=== PATIENT | male | born 1945 | race Caucasian/White ===

== ENCOUNTER 2018-10-12 09:05 | Inpatient (IN) | payer MEDICARE, OTHER ==
[~2018-10-12] VITALS: Ht 172.7 cm; Wt 48.6 kg
--- NOTE | 2018-10-12 09:30 | NUR ---
NGOZI PA AT BS.
--- NOTE | 2018-10-12 09:54 | NUR ---
MD WAS IN TO SEE PT. RV'WD POC WITH PT, HE VERBALIZES UNDERSTANDING. ALL MONITORS ON.
[2018-10-12] MEDS ORDERED: DILTIAZEM 5 MG/ML, 5ML IV ONE (10:00)
[2018-10-12] MEDS ORDERED: SODIUM CHLORIDE FLUSH 10ML SYR IVF ONE (10:00)
--- NOTE | 2018-10-12 10:26 | NUR ---
PT BACK FROM CT. DENIES NEEDS AT THIS TIME.
[2018-10-12] MEDS ORDERED: DILTIAZEM 125 MG in DEXTROSE 5% 100 ML IV SCH (10:31)
[2018-10-12] MEDS ORDERED: DILTIAZEM 5 MG/ML, 10ML ONE (10:36)
[2018-10-12 10:53] LABS: BASOPHILS # (AUTO) 0.07 x10^3/uL (0-0.1); BASOPHILS % (AUTO) 1 % (0-1); EOSINOPHILS # (AUTO) 0.04 x10^3/uL (0-0.4); EOSINOPHILS % (AUTO) 1 % (1-7); LYMPHOCYTES # (AUTO) 0.81 x10^3/uL (1-3.4); LYMPHOCYTES % (AUTO) 11 % (22-44); MD NO; MEAN CORPUSCULAR HEMOGLOBIN 28.4 pg (27.5-34.5); MEAN CORPUSCULAR HGB CONC 33.4 g/dL (33.2-36.2); MEAN CORPUSCULAR VOLUME 85.1 fL (81-97); MEAN PLATELET VOLUME 7.5 fL (7.4-10.4); MONOCYTES # (AUTO) 0.71 x10^3/uL (0.2-0.8); MONOCYTES % (AUTO) 9 % (2-9); NEUTROPHILS # (AUTO) 5.93 x10^3/uL (1.8-6.8); NEUTROPHILS % (AUTO) 78 % (42-75); PLATELET COUNT 512 x10^3/uL (130-400); RED BLOOD COUNT 4.45 x10^6/uL (4.38-5.82); RED CELL DISTRIBUTION WIDTH 14.7 % (9.4-14.8)
[2018-10-12 11:01] LABS: INTERNATIONAL NORMALIZED RATIO 1.15 (0.93-1.1)
[2018-10-12 11:14] LABS: ALBUMIN 2.8 g/dL (3.4-5.0); ANION GAP 9 mmol/L (5-15); CALCIUM 8.6 mg/dL (8.5-10.1); CHLORIDE 99 mmol/L (98-107); CREATININE 0.68 mg/dL (0.7-1.3)
--- NOTE | 2018-10-12 11:19 | NUR ---
DILTIAZEM GTT INFUSING. HR DECREASED TO 105-115 NOW. PT A&OX4, SITTING UP IN [facility].
[2018-10-12] MEDS ORDERED: CEFTRIAXONE PMX 1GM/50ML 50 ML IVPB ONE (11:30)
[2018-10-12] MEDS ORDERED: ASPIRIN 81 MG TABLET CHEW PO ONE (11:30)
[2018-10-12] MEDS ORDERED: AZITHROMYCIN 500 MG in SODIUM CHLORIDE 0.9% 250 ML IVPB ONE (11:30)
--- NOTE | 2018-10-12 11:50 | NUR ---
PT TO CT VIA [facility].
[2018-10-12] MEDS ORDERED: OMNIPAQUE 350 MG/ML, 100ML BOTTLE ONE (12:08)
--- NOTE | 2018-10-12 12:20 | NUR ---
PT VISITING WITH FRIEND "DOC" AT THIS TIME. Addendum: 10/12/18 at 1225 by LUISA PT'S FRIENDS/NEIGHBORS SHOULD BE CONTACTED IF PT NEEDS TO BE PICKED UP FROM HOSPITAL. AMRIAN "DOC" DEJON, , OR VENESSA .
[2018-10-12] MEDS ORDERED: ASPIRIN 81 MG TABLET CHEW ONE (12:43)
[2018-10-12] MEDS ORDERED: CEFTRIAXONE PMX 1GM/50ML 50 ML ONE (12:43)
[2018-10-12] MEDS ORDERED: LABETALOL 5MG/ML, 20ML IVPush PRN (15:00)
[2018-10-12] MEDS ORDERED: ENALAPRILAT 1.25 MG/ML, 2ML IVPush PRN (15:00)
[2018-10-12] MEDS ORDERED: BISACODYL 10 MG SUPP PR PRN (15:00)
[2018-10-12] MEDS ORDERED: ONDANSETRON 2MG/ML, 2ML IVPush PRN (15:00)
[2018-10-12] MEDS ORDERED: POLYETHYLENE GLYCOL 17 GM PACKET PO PRN (15:00)
[2018-10-12] MEDS ORDERED: NITROGLYCERIN 0.4 MG BOTTLE (25 TABS) SL PRN (15:00)
[2018-10-12] MEDS ORDERED: ACETAMINOPHEN 325 MG TABLET PO PRN (15:00)
[2018-10-12] MEDS ORDERED: ONDANSETRON ODT 4 MG PO PRN (15:00)
[2018-10-12] MEDS ORDERED: GUAIFENESIN/DM 200-20MG, 10ML UDC PO PRN (15:00)
[2018-10-12] MEDS ORDERED: SODIUM CHLORIDE FLUSH 10ML SYR IVF PRN (15:00)
--- NOTE | 2018-10-12 15:07 | NUR ---
ADMITTING MD WAS IN TO SEE PT. LAB AT FOR REPEAT TROP. REPORTED TO CHRISTIAN CAPUTO.
--- NOTE | 2018-10-12 15:15 | NUR ---
REPPORTED TO RUTH CAPUTO ON TELE.
--- NOTE | 2018-10-12 15:23 | NUR ---
RECEIVED REPORT FROM ANGEL CAPUTO. PT TAKEN TO MRI.
--- NOTE | 2018-10-12 15:46 | NUR ---
RECEIVED CRITICAL TROPONIN 5.050-MD AWARE. PT STILL IN MRI. MD WILL PAGE RESIDENTIAL SALES REP
[2018-10-12] MEDS ORDERED: GADOBUTROL 7.5 MMOL/7.5 ML PFS ONE (15:58)
--- NOTE | 2018-10-12 16:28 | NUR ---
PT BACK FROM MRI. [employer] MANAGER DR. MUÑOZ AT BEDSIDE.
--- NOTE | 2018-10-12 16:31 | NUR ---
2ND EKG DONE AND GIVEN TO .
[2018-10-12 16:47] VITALS: BP 121/80
[2018-10-12] MEDS: ENOXAPARIN 60 MG/0.6 ML SQ SCH (17:08)
[2018-10-12] MEDS: NICOTINE 14MG/24 HR PATCH.TD24 TD SCH (17:09)
[2018-10-12] MEDS: FUROSEMIDE 20 MG/2 ML IV SCH (17:09)
[2018-10-12 17:59] LABS: ALBUMIN 2.7 g/dL (3.4-5.0); BILIRUBIN, DIRECT 0.3 mg/dL (0.1-0.2)
[2018-10-12] MEDS ORDERED: METOPROLOL TARTRATE 25 MG TABLET PO SCH (18:00)
[2018-10-12 18:01] LABS: BILIRUBIN,INDIRECT 0.4 mg/dL (0.0-2.0); BILIRUBIN,TOTAL 0.7 mg/dL (0.2-1.0); TOTAL PROTEIN 6.3 g/dL (6.4-8.2)
[2018-10-12 19:16] VITALS: BP 94/62
[2018-10-12] MEDS: DOCUSATE 100 MG CAPSULE PO SCH (20:04)
[2018-10-12] MEDS: DILTIAZEM 125 MG in SODIUM CHLORIDE 0.9% 100 ML IV SCH (20:04)
[2018-10-12 20:10] VITALS: BP 96/57
[2018-10-12 20:32] LABS: MICROSCOPIC NOT IND
[2018-10-12 20:41] LABS: CULTURE INDICATED? NO
[2018-10-13 01:28] VITALS: BP 94/61
[2018-10-13] MEDS: METOPROLOL TARTRATE 25 MG TABLET PO SCH ×2 (05:09→16:08)
[2018-10-13] MEDS: ENOXAPARIN 60 MG/0.6 ML SQ SCH ×3 (05:22→16:05)
[2018-10-13] MEDS: ASPIRIN 81 MG TABLET EC PO SCH ×2 (05:22→16:05)
[2018-10-13 05:42] LABS: BASOPHILS # (AUTO) 0.07 x10^3/uL (0-0.1); BASOPHILS % (AUTO) 1 % (0-1); EOSINOPHILS # (AUTO) 0.12 x10^3/uL (0-0.4); EOSINOPHILS % (AUTO) 2 % (1-7); LYMPHOCYTES # (AUTO) 0.82 x10^3/uL (1-3.4); LYMPHOCYTES % (AUTO) 11 % (22-44); MD NO; MEAN CORPUSCULAR HGB CONC 34.3 g/dL (33.2-36.2); MEAN CORPUSCULAR VOLUME 84.5 fL (81-97); MEAN PLATELET VOLUME 7.1 fL (7.4-10.4); MONOCYTES # (AUTO) 0.47 x10^3/uL (0.2-0.8); MONOCYTES % (AUTO) 7 % (2-9); NEUTROPHILS # (AUTO) 5.74 x10^3/uL (1.8-6.8); NEUTROPHILS % (AUTO) 80 % (42-75); PLATELET COUNT 462 x10^3/uL (130-400); RED BLOOD COUNT 3.82 x10^6/uL (4.38-5.82); RED CELL DISTRIBUTION WIDTH 14.5 % (9.4-14.8)
[2018-10-13 05:58] LABS: ALBUMIN 2.5 g/dL (3.4-5.0); ANION GAP 8 mmol/L (5-15); CALCIUM 8.4 mg/dL (8.5-10.1); CHLORIDE 99 mmol/L (98-107)
[2018-10-13 06:01] LABS: ALANINE AMINOTRANSFERASE 14 U/L (12-78); ALKALINE PHOSPHATASE 83 U/L (45-117); BILIRUBIN,TOTAL 0.7 mg/dL (0.2-1.0); CHOL/HDL RATIO 3.4; CHOLESTEROL, TOTAL 85 mg/dL (140-239); CREATININE 0.63 mg/dL (0.7-1.3); HDL CHOL % 29 % (26-37); HDL CHOLESTEROL (DIRECT) 25 mg/dL (40-60); LDL CHOLESTEROL,CALCULATED 47 mg/dL (54-169); LDL/HDL RATIO 1.9 (0.5-3.0); TOTAL PROTEIN 6.2 g/dL (6.4-8.2); TRIGLYCERIDES 66 mg/dL (50-200); VLDL CHOLESTEROL 13 mg/dL (0-25)
[2018-10-13 06:53] VITALS: BP 102/65
[2018-10-13] MEDS: DILTIAZEM 125 MG in SODIUM CHLORIDE 0.9% 100 ML IV SCH (07:40)
[2018-10-13] MEDS: DOCUSATE 100 MG CAPSULE PO SCH (07:41)
[2018-10-13] MEDS: FUROSEMIDE 20 MG/2 ML IV SCH ×2 (07:41→16:09)
[2018-10-13] MEDS: DILTIAZEM 30 MG TABLET PO SCH ×3 (11:45→22:08)
[2018-10-13 13:02] VITALS: BP 120/76
[2018-10-13 13:26] LABS: HEMOGLOBIN A1C 5.2 % (4.2-6.3)
[2018-10-13] MEDS: NICOTINE 14MG/24 HR PATCH.TD24 TD SCH (16:09)
[2018-10-13 19:17] VITALS: BP 101/69
[2018-10-13 22:06] VITALS: BP 95/62
[2018-10-13] MEDS: SENNA/DOCUSATE TABLET PO SCH (22:07)
[2018-10-14] VITALS (8 sets, daily range): BP systolic 92–112; BP diastolic 48–74
[2018-10-14] MEDS: DILTIAZEM 30 MG TABLET PO SCH ×4 (03:53→23:08)
[2018-10-14 05:14] LABS: BASOPHILS # (AUTO) 0.06 x10^3/uL (0-0.1); BASOPHILS % (AUTO) 1 % (0-1); EOSINOPHILS # (AUTO) 0.13 x10^3/uL (0-0.4); EOSINOPHILS % (AUTO) 2 % (1-7); LYMPHOCYTES # (AUTO) 0.68 x10^3/uL (1-3.4); LYMPHOCYTES % (AUTO) 9 % (22-44); MD NO; MEAN CORPUSCULAR HEMOGLOBIN 28.5 pg (27.5-34.5); MEAN CORPUSCULAR HGB CONC 33.5 g/dL (33.2-36.2); MEAN CORPUSCULAR VOLUME 85.2 fL (81-97); MEAN PLATELET VOLUME 6.4 fL (7.4-10.4); MONOCYTES # (AUTO) 0.38 x10^3/uL (0.2-0.8); MONOCYTES % (AUTO) 5 % (2-9); NEUTROPHILS # (AUTO) 6.34 x10^3/uL (1.8-6.8); NEUTROPHILS % (AUTO) 84 % (42-75); PLATELET COUNT 501 x10^3/uL (130-400); RED BLOOD COUNT 3.92 x10^6/uL (4.38-5.82); RED CELL DISTRIBUTION WIDTH 14.6 % (9.4-14.8)
[2018-10-14 05:24] LABS: ANION GAP 5 mmol/L (5-15); CALCIUM 8.4 mg/dL (8.5-10.1); CHLORIDE 103 mmol/L (98-107); CREATININE 0.67 mg/dL (0.7-1.3)
[2018-10-14] MEDS: METOPROLOL TARTRATE 25 MG TABLET PO SCH ×2 (05:49→17:34)
[2018-10-14] MEDS ORDERED: REGADENOSON 0.4 MG/5 ML SYRINGE ONE (09:14)
[2018-10-14] MEDS: FUROSEMIDE 20 MG/2 ML IV SCH ×2 (10:58→22:10)
[2018-10-14] MEDS: SENNA/DOCUSATE TABLET PO SCH ×2 (11:16→22:09)
[2018-10-14] MEDS ORDERED: HEPARIN 5,000 UNITS/ML, 1ML IV PRN (17:00)
[2018-10-14] MEDS ORDERED: HEPARIN 5,000 UNITS/ML, 1ML IV ONE (17:00)
[2018-10-14] MEDS ORDERED: HEPARIN 25,000 UNITS/500ML PMX 500 ML IV PRN (17:00)
[2018-10-14] MEDS: NICOTINE 14MG/24 HR PATCH.TD24 TD SCH (17:34)
[2018-10-15 02:01] VITALS: BP 103/66
[2018-10-15] MEDS: METOPROLOL TARTRATE 25 MG TABLET PO SCH (05:09)
[2018-10-15] MEDS: DILTIAZEM 30 MG TABLET PO SCH ×2 (05:10→10:59)
[2018-10-15] MEDS ORDERED: ASPIRIN 81 MG TABLET EC PO SCH (06:00)
[2018-10-15 08:00] VITALS: BP 99/60
[2018-10-15] MEDS: SENNA/DOCUSATE TABLET PO SCH (08:30)
[2018-10-15] MEDS: FUROSEMIDE 20 MG/2 ML IV SCH (08:30)
[2018-10-15] MEDS ORDERED: DIGOXIN 0.25 MG/ML, 2ML IVPush ONE (09:30)
[2018-10-15 13:00] VITALS: BP 99/60
[2018-10-15] MEDS ORDERED: GUAIFENESIN 200 MG TABLET PO PRN (13:30)
[2018-10-15] MEDS ORDERED: DILT120C9 PO (13:45)
[2018-10-15] MEDS ORDERED: GUAI200T3 PO (13:45)
[2018-10-15] MEDS ORDERED: SENN-177 PO (13:45)
[2018-10-15] MEDS ORDERED: DIGO125T PO (13:45)
[2018-10-15] MEDS ORDERED: METO25TA35 PO (13:45)
[2018-10-15] MEDS ORDERED: APIX5TAB PO (13:45)
[2018-10-15] MEDS ORDERED: LIDOCAINE-MPF 1%, 5ML ONE (13:59)
[2018-10-15] MEDS ORDERED: FENTANYL PF 100 MCG/2ML ONE (14:21)
[2018-10-15] MEDS ORDERED: FLUMAZENIL 0.1 MG/1 ML, 5ML ONE (14:21)
[2018-10-15] MEDS ORDERED: NALOXONE 1 MG/ML, 2ML ONE (14:21)
[2018-10-15] MEDS ORDERED: MIDAZOLAM 1 MG/ML, 5ML ONE (14:21)
[2018-10-15] MEDS: NICOTINE 14MG/24 HR PATCH.TD24 TD SCH (15:00)
[2018-10-15] MEDS ORDERED: APIXABAN 5 MG TABLET PO SCH (21:00)
[2018-10-16] MEDS ORDERED: DIGOXIN 0.125 MG TABLET PO SCH (09:00)
[2018-10-16] MEDS ORDERED: DILTIAZEM 120 MG CAP.ER.24H PO SCH (09:00)
== END 2018-10-15 16:56 | disposition home or self-care (01) | DRG 64 ==
LOC: ED 09:55 → EDIP 14:43 → 5SO 16:44 → DCLOUNGE 10-15 16:35
PROVIDERS: ADMIT Hospitalist; ATTEND Hospitalist
DX: I63.9 Cerebral infarction, unspecified (principal); I50.43 Acute on chronic combined systolic (congestive) and diastolic (congestive) heart failure; E43 Unspecified severe protein-calorie malnutrition; E87.1 Hypo-osmolality and hyponatremia; D68.69 Other thrombophilia; Z68.1 Body mass index [BMI] 19.9 or less, adult; H53.2 Diplopia; I48.91 Unspecified atrial fibrillation; Z51.5 Encounter for palliative care; F17.210 Nicotine dependence, cigarettes, uncomplicated; I08.1 Rheumatic disorders of both mitral and tricuspid valves; I11.0 Hypertensive heart disease with heart failure; I65.22 Occlusion and stenosis of left carotid artery; J44.9 Chronic obstructive pulmonary disease, unspecified; D47.3 Essential (hemorrhagic) thrombocythemia; K59.00 Constipation, unspecified; R39.11 Hesitancy of micturition; Z71.6 Tobacco abuse counseling
CPT/HCPCS: 36415; 70450; 70496; 70543; 70553; 71046; 71275; 78452; 80048; 80053; 80061; 80076; 81003; 82040; 83036; 83605; 83735; 83880; 84145; 84443; 84484; 85025; 85520; 85610; 85730; 87040; 93005; 93017; 93306; 93880; 96365; 96366; 99285; A9585; G0378; J0456; J0696; J1644; J1650; J2250; J2785; J3010; Q9967; 92523-GN; A9502; C9898; G0515-GN; J1160; J1940; J2310; J7050

== ENCOUNTER 2019-01-28 09:35 | Inpatient (IN) | payer MEDICARE ==
[~2019-01-28] VITALS: Ht 172.7 cm; Wt 48.8 kg
[~2019-01-28 09:35] MED LIST: APIX5TAB PO; DIGO125T PO; DILT120C9 PO; GUAI200T3 PO; METO25TA35 PO; SENN-177 PO
[2019-01-28 09:52] LABS: BASOPHILS # (AUTO) 0.07 x10^3/uL (0-0.1); BASOPHILS % (AUTO) 1 % (0-1); EOSINOPHILS # (AUTO) 0.04 x10^3/uL (0-0.4); EOSINOPHILS % (AUTO) 0 % (1-7); LYMPHOCYTES # (AUTO) 3.45 x10^3/uL (1-3.4); LYMPHOCYTES % (AUTO) 37 % (22-44); MD NO; MEAN CORPUSCULAR HEMOGLOBIN 24.1 pg (27.5-34.5); MEAN CORPUSCULAR HGB CONC 30.8 g/dL (33.2-36.2); MEAN CORPUSCULAR VOLUME 78.3 fL (81-97); MEAN PLATELET VOLUME 7.3 fL (7.4-10.4); MONOCYTES # (AUTO) 0.62 x10^3/uL (0.2-0.8); MONOCYTES % (AUTO) 7 % (2-9); NEUTROPHILS # (AUTO) 5.23 x10^3/uL (1.8-6.8); NEUTROPHILS % (AUTO) 56 % (42-75); PLATELET COUNT 272 x10^3/uL (130-400); RED BLOOD COUNT 4.17 x10^6/uL (4.38-5.82); RED CELL DISTRIBUTION WIDTH 17.3 % (9.4-14.8)
[2019-01-28] MEDS ORDERED: SODIUM CHLORIDE FLUSH 10ML SYR IVF ONE (10:00)
[2019-01-28] MEDS ORDERED: DEXTROSE 50%, 50ML SYRINGE IVPush ONE (10:00)
[2019-01-28] MEDS ORDERED: NOREPINEPHRINE 4 MG in SODIUM CHLORIDE 0.9% 246 ML IV PRN ×2 (10:04→13:48)
[2019-01-28 10:24] LABS: ALBUMIN 1.7 g/dL (3.4-5.0); ANION GAP 16 mmol/L (5-15); CALCIUM 7.3 mg/dL (8.5-10.1); CHLORIDE 105 mmol/L (98-107)
[2019-01-28 10:29] LABS: ALANINE AMINOTRANSFERASE 56 U/L (12-78); ALKALINE PHOSPHATASE 82 U/L (45-117); BILIRUBIN,TOTAL 0.7 mg/dL (0.2-1.0); CREATININE 1.17 mg/dL (0.7-1.3); INTERNATIONAL NORMALIZED RATIO 1.56 (0.93-1.1); PROTHROMBIN TIME 16.1 Seconds (9.6-11.5); TOTAL PROTEIN 4.7 g/dL (6.4-8.2); TROPONIN I 0.017 ng/mL (0.000-0.045)
[2019-01-28 11:18] LABS: FREE T4 (FREE THYROXINE) 1.11 ng/dL (0.76-1.46); THYROID STIMULATING HORMONE 7.04 mIU/L (0.358-3.740)
[2019-01-28 11:25] LABS: CULTURE INDICATED? YES; MICROSCOPIC INDICATED
[2019-01-28 11:36] LABS: BARBITURATE SCREEN, URINE Negative (Negative); BENZODIAZEPINE SCREEN, URINE Negative (Negative); CANNABINOID SCREEN, URINE Negative (Negative); COCAINE SCREEN, URINE Negative (Negative); METHADONE SCREEN, URINE Negative (Negative); OPIATE SCREEN, URINE Negative (Negative)
[2019-01-28 11:37] LABS: AMPHETAMINE SCREEN, URINE Negative (Negative)
[2019-01-28] MEDS ORDERED: OMNIPAQUE 350 MG/ML, 100ML BOTTLE ONE (11:38)
--- NOTE | 2019-01-28 11:53 | NUR ---
bib remsa cardiac arrest post epix3 with cpr intubated upon arriva nonresponsive et tube was changed by dr moran by rt assist #8 26cm lip no sedation no neuro response at all no cornea no cough no gag but has over breath by vent 2 liters of NS given levo was started after central line placement pt's bp is still low trending nsr on monitor attached dfib pads ct head and abdomen was done ( abdome is getting distending hardness )
[2019-01-28] MEDS ORDERED: SODIUM CHLORIDE FLUSH 10ML SYR IVF PRN (12:00)
--- NOTE | 2019-01-28 12:29 | NUR ---
repoart given to brat rn pt will go ct chest then up stairs
[2019-01-28] MEDS ORDERED: SODIUM CHLORIDE 0.9% 1,000ML IVBOLUS ONE ×2 (12:30)
--- NOTE | 2019-01-28 12:36 | NUR ---
money is in pt's wallet called security for secure placement
--- NOTE | 2019-01-28 13:02 | NUR ---
security yellow copy in is chart pt will go ct within 15min
--- NOTE | 2019-01-28 13:42 | NUR ---
miscommunication of hypothermia from dr moran confirmed with dr moran and given report to jagdish moran
[2019-01-28] MEDS ORDERED: VANCOMYCIN PMX 1GM/200ML 200 ML IV ONE (14:00)
[2019-01-28] MEDS ORDERED: SODIUM CHLORIDE 0.9% 1,000ML IV SCH (14:00)
[2019-01-28] MEDS ORDERED: FENTANYL PF 100 MCG/2ML IVPush PRN (14:00)
[2019-01-28] MEDS ORDERED: SENNA/DOCUSATE TABLET NG PRN (14:00)
[2019-01-28] MEDS ORDERED: DEXTROSE 4 GM TAB.CHEW PO PRN (14:00)
[2019-01-28] MEDS ORDERED: DEXTROSE 50%, 50ML SYRINGE IVPush PRN (14:00)
[2019-01-28] MEDS: ALBUTEROL/IPRATROPIUM 2.5MG/0.5MG, 3 ML INLINE SCH ×3 (14:00→22:26)
[2019-01-28] MEDS ORDERED: PHARMACY MAY ADJ FOR RENAL FX MC SCH (14:00)
[2019-01-28] MEDS ORDERED: LIDOCAINE-MPF 1%, 2ML ENDO PRN (14:00)
[2019-01-28] MEDS ORDERED: SODIUM CHLORIDE 0.9% 1,000 ML IV SCH (14:00)
[2019-01-28] MEDS ORDERED: BISACODYL 10 MG SUPP PR PRN (14:00)
[2019-01-28] MEDS ORDERED: FAMOTIDINE 20 MG/2 ML IV SCH ×2 (14:00→15:30)
[2019-01-28] MEDS ORDERED: GLUCAGON 1 MG IM PRN (14:00)
[2019-01-28] MEDS ORDERED: VANCOMYCIN PER PHARMACY MC PRN (14:00)
[2019-01-28] MEDS ORDERED: LACTULOSE 20 GM/30 ML UDC NG PRN (14:00)
[2019-01-28] MEDS ORDERED: ZOSYN PER PHARMACY MC ONE (14:00)
[2019-01-28] MEDS ORDERED: ENOXAPARIN 40 MG/0.4 ML SQ SCH (14:30)
[2019-01-28] MEDS ORDERED: PHARMACOKINETIC CONSULTATION MC ONE (14:30)
[2019-01-28] MEDS ORDERED: VANCOMYCIN PMX 1GM/200ML 200 ML IV SCH (14:30)
[2019-01-28] MEDS ORDERED: ONDANSETRON 2MG/ML, 2ML IVPush PRN (14:30)
[2019-01-28] MEDS ORDERED: PHARMACOKINETIC MONITORING MC PRN (14:30)
[2019-01-28] MEDS: SODIUM CHLORIDE 0.9% 1,000 ML IV SCH ×2 (14:39→21:00)
[2019-01-28] MEDS: PIPERACILLIN/TAZO/PMX 3.375GM 50 ML IV SCH ×2 (14:39→22:32)
[2019-01-28 14:56] VITALS: BP 91/64
[2019-01-28 15:01] VITALS: BP 94/58
[2019-01-28] MEDS ORDERED: NOREPINEPHRINE 1 MG/ML, 4ML ONE (15:26)
[2019-01-28 15:52] LABS: INTERNATIONAL NORMALIZED RATIO 1.51 (0.93-1.1); PROTHROMBIN TIME 15.6 Seconds (9.6-11.5)
[2019-01-28 15:57] LABS: TROPONIN I 0.038 ng/mL (0.000-0.045)
[2019-01-28 15:58] LABS: ANION GAP 12 mmol/L (5-15); CALCIUM 7.9 mg/dL (8.5-10.1); CHLORIDE 108 mmol/L (98-107); CREATININE 1.06 mg/dL (0.7-1.3); TRIGLYCERIDES 96 mg/dL (50-200)
[2019-01-28] MEDS: INSULIN LISPRO 100 UNITS/ML, PEN SQ-INSULIN SCH ×2 (16:00→20:36)
[2019-01-28 16:33] LABS: MD YES; MEAN CORPUSCULAR HEMOGLOBIN 24.5 pg (27.5-34.5); MEAN CORPUSCULAR HGB CONC 31.1 g/dL (33.2-36.2); MEAN CORPUSCULAR VOLUME 78.5 fL (81-97); MEAN PLATELET VOLUME 6.7 fL (7.4-10.4); PLATELET COUNT 378 x10^3/uL (130-400); RED BLOOD COUNT 3.48 x10^6/uL (4.38-5.82); RED CELL DISTRIBUTION WIDTH 16.7 % (9.4-14.8)
[2019-01-28 16:34] LABS: <PLATELET ESTIMATE> ADEQUATE; <PLT MORPHOLOGY> NORMAL PLT MORPH; BAND#(MANUAL) 1.72 x10^3/uL; BANDS%(MANUAL) 14 % (0-7); LYMPH#(MANUAL) 0.74 x10^3/uL (1-3.4); LYMPHS% (MANUAL) 6 % (22-44); MONOS#(MANUAL) 0.49 x10^3/uL (0.3-2.7); MONOS% (MANUAL) 4 % (2-9); SEG#(MANUAL) 9.35 x10^3/uL (1.8-6.8); SEGS% (MANUAL) 76 % (42-75)
[2019-01-28 16:35] LABS: ANISOCYTOSIS 1+; MICROCYTOSIS 1+
[2019-01-28 16:36] LABS: OVALOCYTES 1+
[2019-01-28] MEDS ORDERED: CALCIUM GLUCONATE 4.6 MEQ in SODIUM CHLORIDE 0.9% 50 ML IV ONE (17:30)
[2019-01-28] MEDS: NS + 20MEQ KCL 1,000 ML IV SCH (17:33)
[2019-01-28] MEDS: PROPOFOL 100 ML IV PRN (18:26)
[2019-01-28 20:32] LABS: TROPONIN I 0.057 ng/mL (0.000-0.045)
[2019-01-28] MEDS ORDERED: SENNA 176 MG/5 ML ORAL SOL NG PRN (21:00)
[2019-01-28] MEDS: SODIUM CHLORIDE FLUSH 10ML SYR IVF SCH (22:33)
[2019-01-29] MEDS: NS + 20MEQ KCL 1,000 ML IV SCH ×3 (00:39→08:54)
[2019-01-29] MEDS: ALBUTEROL/IPRATROPIUM 2.5MG/0.5MG, 3 ML INLINE SCH ×3 (02:09→10:00)
[2019-01-29] MEDS: SODIUM CHLORIDE 0.9% 1,000 ML IV SCH (03:34)
[2019-01-29] MEDS ORDERED: ARTIFICIAL TEARS OINT 3.5 GM EACHEYE SCH ×2 (04:00→09:00)
[2019-01-29] MEDS ORDERED: ARTIFICIAL TEARS OINT 3.5 GM EACHEYE PRN (04:00)
[2019-01-29] MEDS: INSULIN LISPRO 100 UNITS/ML, PEN SQ-INSULIN SCH ×2 (04:00→09:01)
[2019-01-29 04:17] LABS: ALANINE AMINOTRANSFERASE 71 U/L (12-78); ALBUMIN 2.1 g/dL (3.4-5.0); ANION GAP 12 mmol/L (5-15); CALCIUM 7.8 mg/dL (8.5-10.1); CHLORIDE 114 mmol/L (98-107); CREATININE 0.82 mg/dL (0.7-1.3)
[2019-01-29 04:20] LABS: MEAN CORPUSCULAR HEMOGLOBIN 24.8 pg (27.5-34.5); MEAN CORPUSCULAR HGB CONC 31.7 g/dL (33.2-36.2); MEAN CORPUSCULAR VOLUME 78.4 fL (81-97); MEAN PLATELET VOLUME 6.6 fL (7.4-10.4); PLATELET COUNT 256 x10^3/uL (130-400); RED BLOOD COUNT 3.24 x10^6/uL (4.38-5.82); RED CELL DISTRIBUTION WIDTH 16.7 % (9.4-14.8)
[2019-01-29 04:22] LABS: ALKALINE PHOSPHATASE 86 U/L (45-117); BILIRUBIN,TOTAL 0.9 mg/dL (0.2-1.0); TOTAL PROTEIN 5.6 g/dL (6.4-8.2)
[2019-01-29] MEDS: PIPERACILLIN/TAZO/PMX 3.375GM 50 ML IV SCH (04:58)
[2019-01-29] MEDS: PROPOFOL 100 ML IV PRN (04:59)
[2019-01-29 05:30] LABS: MD YES
[2019-01-29 05:32] LABS: <PLATELET ESTIMATE> ADEQUATE; <PLT MORPHOLOGY> NORMAL PLT MORPH; ANISOCYTOSIS 1+; BAND#(MANUAL) 1.65 x10^3/uL; BANDS%(MANUAL) 14 % (0-7); LYMPH#(MANUAL) 0.59 x10^3/uL (1-3.4); LYMPHS% (MANUAL) 5 % (22-44); MICROCYTOSIS 1+; MONOS#(MANUAL) 0.47 x10^3/uL (0.3-2.7); MONOS% (MANUAL) 4 % (2-9); OVALOCYTES 1+; SEG#(MANUAL) 9.09 x10^3/uL (1.8-6.8); SEGS% (MANUAL) 77 % (42-75)
[2019-01-29] MEDS ORDERED: NOREPINEPHRINE 1 MG/ML, 4ML ONE (08:26)
[2019-01-29] MEDS: SODIUM CHLORIDE FLUSH 10ML SYR IVF SCH (08:54)
[2019-01-29] MEDS ORDERED: FAMOTIDINE 20 MG/2 ML IV SCH (09:00)
[2019-01-29] MEDS ORDERED: ATROPINE OPHTH SOLN 1%, 5ML BC PRN (16:00)
[2019-01-29] MEDS ORDERED: MORPHINE SULFATE 4 MG/ML, 1ML IVPush PRN ×2 (16:00)
[2019-01-29] MEDS ORDERED: SCOPOLAMINE PATCH, 1.5MG PATCH.TD72 TD SCH (16:00)
[2019-01-29] MEDS ORDERED: LORazepam 2 MG/ML, 1ML IVPush PRN (16:00)
[2019-01-29] MEDS ORDERED: SODIUM CHLORIDE FLUSH 10ML SYR IVF SCH (21:00)
== END 2019-01-29 16:35 | disposition expired | DRG 208 ==
LOC: ED 11:38 → CCU 11:39 → ED 12:40
PROVIDERS: ADMIT Internal Medicine; ATTEND Internal Medicine
PROC: 02HV33Z Insertion of Infusion Device into Superior Vena Cava, Percutaneous Approach (ICD-10-PCS; principal; 2019-01-28)
PROC: 5A1945Z Respiratory Ventilation, 24-96 Consecutive Hours (ICD-10-PCS; 2019-01-28)
PROC: B548ZZA Ultrasonography of Superior Vena Cava, Guidance (ICD-10-PCS; 2019-01-28)
PROC: 0BH17EZ Insertion of Endotracheal Airway into Trachea, Via Natural or Artificial Opening (ICD-10-PCS; 2019-01-28)
PROC: 0T9B70Z Drainage of Bladder with Drainage Device, Via Natural or Artificial Opening (ICD-10-PCS; 2019-01-28)
PROC: 5A12012 Performance of Cardiac Output, Single, Manual (ICD-10-PCS; 2019-01-28)
DX: J96.00 Acute respiratory failure, unspecified whether with hypoxia or hypercapnia (principal); G93.41 Metabolic encephalopathy; J18.1 Lobar pneumonia, unspecified organism; E43 Unspecified severe protein-calorie malnutrition; E15 Nondiabetic hypoglycemic coma; D68.9 Coagulation defect, unspecified; E87.2 Acidosis; I50.32 Chronic diastolic (congestive) heart failure; J98.11 Atelectasis; K56.601 Complete intestinal obstruction, unspecified as to cause; R18.8 Other ascites; R57.9 Shock, unspecified; Z99.11 Dependence on respirator [ventilator] status; Z68.1 Body mass index [BMI] 19.9 or less, adult; C78.00 Secondary malignant neoplasm of unspecified lung; C78.4 Secondary malignant neoplasm of small intestine; C78.6 Secondary malignant neoplasm of retroperitoneum and peritoneum; C78.7 Secondary malignant neoplasm of liver and intrahepatic bile duct; C80.1 Malignant (primary) neoplasm, unspecified; D50.9 Iron deficiency anemia, unspecified; Z66 Do not resuscitate; I46.9 Cardiac arrest, cause unspecified; E88.09 Other disorders of plasma-protein metabolism, not elsewhere classified; F17.200 Nicotine dependence, unspecified, uncomplicated; I48.91 Unspecified atrial fibrillation; J43.9 Emphysema, unspecified; Z79.01 Long term (current) use of anticoagulants; Z86.711 Personal history of pulmonary embolism; Z86.73 Personal history of transient ischemic attack (TIA), and cerebral infarction without residual deficits; Z91.14 Patient's other noncompliance with medication regimen
CPT/HCPCS: 31500; 36556; 36600; 70450; 71045; 71250; 74177; 80048; 80053; 80307; 81001; 82330; 82803; 82962; 83605; 83735; 84100; 84439; 84443; 84478; 84484; 85014; 85018; 85025; 85610; 85730; 87040; 87070; 87081; 87086; 87205; 93005; 93306; 94002; 94003; 94640; 96365; 96375; G0378; J0610; J1650; J2543; J2704; J3010; J3370; J3480; J7620; Q9967; J2060; J2270; J3490; J7030; J7050